=== PATIENT | male | born 1960 | race Caucasian/White ===

== ENCOUNTER 2020-06-12 11:26 | Emergency (ER) | payer OTHER ==
[2020-06-12 11:55] VITALS: BP 99/75; PULSE 91
[2020-06-12] MEDS ORDERED: Sodium Chloride 0.9% 1,000 ML IV STA (12:51)
--- NOTE | 2020-06-12 12:51 | EDM.PDOC ---
ED HPI GENERAL MEDICAL PROBLEM - General Chief Complaint: Respiratory Problem Stated Complaint: COVID +/FATIGUE AND SYNCOPE Time Seen by Provider: 06/12/20 11:40 Source of Information: Reports: Patient History Limitations: Reports: No Limitations - History of Present Illness INITIAL COMMENTS - FREE TEXT/NARRATIVE: Patient is a 60-year-old male presenting to the emergency department with complaints of dizziness, fatigue, and diarrhea with a known diagnosis of COVID- 19. He states his symptoms began on 04 June which is approximately 8 days ago. He was tested for Covid at that time and received his top positive results 2 days later. States he has a very mild cough but denies any chest pain or shortness of breath. This morning when he stood up he became quite dizzy. He did not however pass out. He describes a decreased appetite. Thinks he has been taking an adequate amount of fluid, however he does have a couple episodes of diarrhea each day. Denies any abdominal pain. He has had some intermittent fevers but states that they have been lower than 101. He has been fever free for a few days. Has a history of A. fib, however he has no longer on blood thinners. 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 Headache Pain Score (Numeric/FACES): 5 Generalized Pain Score (Numeric/FACES): 5 - Related Data Allergies Allergy/AdvReac Type Severity Reaction Status Date / Time No Known Allergies Allergy Verified 10/16/14 07:15 Home Meds: Home Meds Magnesium Chloride [Slow-Mag] 71.5 mg PO ASDIRECTED #30 tablet. 06/12/20 [Rx] dexAMETHasone [Dexamethasone] 6 mg PO BID #7 tab 06/12/20 [Rx] Past Medical History Cardiovascular History: Reports: Afib, High Cholesterol, Hypertension Gastrointestinal History: Reports: GERD Psychiatric History: Reports: Anxiety, Depression Social & Family History - Tobacco Use Tobacco Use Status *Q: Never Tobacco User - Caffeine Use Caffeine Use: Reports: Coffee, Soda - Recreational Drug Use Recreational Drug Use: No ED ROS GENERAL - Review of Systems Review Of Systems: See Below Constitutional: Reports: Fever, Weakness, Fatigue HEENT: Reports: No Symptoms Respiratory: Reports: Cough. Denies: Shortness of Breath, Pleuritic Chest Pain Cardiovascular: Reports: Lightheadedness. Denies: Chest Pain, Dyspnea on Exertion, Syncope Endocrine: Reports: No Symptoms GI/Abdominal: Reports: Diarrhea. Denies: Abdominal Pain, Nausea, Vomiting : Reports: No Symptoms Musculoskeletal: Reports: Other (Generalized body aches) Skin: Reports: No Symptoms Neurological: Reports: Dizziness. Denies: Confusion, Headache Psychiatric: Reports: No Symptoms Hematologic/Lymphatic: Reports: No Symptoms Immunologic: Reports: No Symptoms ED EXAM, GENERAL - Physical Exam Exam: See Below Exam Limited By: No Limitations General Appearance: Alert, WD/WN, No Apparent Distress Respiratory/Chest: No Respiratory Distress, Lungs Clear, Normal Breath Sounds, No Accessory Muscle Use, Chest Non-Tender Cardiovascular: Normal Peripheral Pulses, Regular Rate, Rhythm, No Edema, No Gallop, No JVD, No Murmur, No Rub GI/Abdominal: Normal Bowel Sounds, Soft, Non-Tender, No Organomegaly, No Distention, No Abnormal Bruit, No Mass Neurological: Alert, Oriented, CN II-XII Intact, Normal Cognition, Normal Gait, Normal Reflexes, No Motor/Sensory Deficits Psychiatric: Normal Affect, Normal Mood Skin Exam: Warm, Dry, Intact, Normal Color, No Rash #1 Interpretation EKG Date: 06/12/20 Time: 12:36 Rhythm: A-Fib Rate (Beats/Min): 80 [place]: LAD-Left [place] Deviation P-Wave: Absent QRS: Normal ST-T: Normal QT: Prolonged EKG Interpretation Comments: A. fib at rate of 65 to 100 bpm Early R wave transition consider right ventricular hypertrophy/septal hypertrophy T wave flattening V3, V6, 1, aVL, 2, 3, and aVF-consider hypokalemia occasional PACs QTC is markedly prolonged Left axis deviation EKG interpreted by Dr. Lucita MG. Course - Vital Signs Last Recorded V/S: Last Vital Signs Temp 98.2 F 06/12/20 11:52 Pulse 91 06/12/20 11:52 Resp 20 06/12/20 11:52 BP 99/75 06/12/20 11:52 Pulse Ox 93 L 06/12/20 11:52 Orthostatic Blood Pressure [ 90/66 Standing] Orthostatic Blood Pressure [ 99/74 Sitting] Orthostatic Blood Pressure [ 96/76 Supine] - Orders/Labs/Meds Orders: Active Orders 24 hr Category Date Time Status Chest 1V Frontal [CR] Stat Exams 06/12/20 11:49 Taken Labs: Laboratory Tests 06/12/20 06/12/20 06/12/20 Range/Units 12:11 12:11 12:11 WBC 5.62 (4.23-9.07) K/mm3 RBC 4.92 (4.63-6.08) M/mm3 Hgb 14.8 (13.7-17.5) gm/dl Hct 43.5 (40.1-51.0) % MCV 88.4 D (79.0-92.2) fl MCH 30.1 (25.7-32.2) pg MCHC 34.0 (32.2-35.5) g/dl RDW Std Deviation 43.0 (35.1-43.9) fL Plt Count 159 L D (163-337) K/mm3 MPV 9.8 (9.4-12.3) fl Neut % (Auto) 71.6 H (34.0-67.9) % Lymph % (Auto) 19.4 L (21.8-53.1) % [place] % (Auto) 8.2 (5.3-12.2) % Eos % (Auto) 0.2 L (0.8-7.0) Baso % (Auto) 0.2 (0.1-1.2) % Neut # (Auto) 4.03 (1.78-5.38) K/mm3 Lymph # (Auto) 1.09 L (1.32-3.57) K/mm3 [place] # (Auto) 0.46 (0.30-0.82) K/mm3 Eos # (Auto) 0.01 L (0.04-0.54) K/mm3 Baso # (Auto) 0.01 (0.01-0.08) K/mm3 D-Dimer, Quantitative (0.19-0.50) mg/L Sodium (136-145) mEq/L Potassium (3.5-5.1) mEq/L Chloride (98-107) mEq/L Carbon Dioxide (21-32) mEq/L Anion Gap (5-15) BUN (7-18) mg/dL Creatinine (0.7-1.3) mg/dL Est Cr Clr Drug Dosing mL/min Estimated GFR (MDRD) (>60) mL/min BUN/Creatinine Ratio (14-18) Glucose (80-115) mg/dL Calcium (8.5-10.1) mg/dL Magnesium (1.8-2.4) mg/dl Ferritin 1532 H (26-388) ng/ml Total Bilirubin (0.2-1.0) mg/dL AST (15-37) U/L ALT (16-63) U/L Alkaline Phosphatase (46-116) U/L Lactate Dehydrogenase 270 H (85-227) U/L Troponin I (0.00-0.056) ng/mL C-Reactive Protein (<1.0) mg/dL NT-Pro-B Natriuret Pep (0-125) pg/mL Total Protein (6.4-8.2) g/dl Albumin (3.4-5.0) g/dl Globulin gm/dL Albumin/Globulin Ratio (1-2) 06/12/20 06/12/20 06/12/20 Range/Units 12:11 12:11 12:11 WBC (4.23-9.07) K/mm3 RBC (4.63-6.08) M/mm3 Hgb (13.7-17.5) gm/dl Hct (40.1-51.0) % MCV (79.0-92.2) fl MCH (25.7-32.2) pg MCHC (32.2-35.5) g/dl RDW Std Deviation (35.1-43.9) fL Plt Count (163-337) K/mm3 MPV (9.4-12.3) fl Neut % (Auto) (34.0-67.9) % Lymph % (Auto) (21.8-53.1) % [place] % (Auto) (5.3-12.2) % Eos % (Auto) (0.8-7.0) Baso % (Auto) (0.1-1.2) % Neut # (Auto) (1.78-5.38) K/mm3 Lymph # (Auto) (1.32-3.57) K/mm3 [place] # (Auto) (0.30-0.82) K/mm3 Eos # (Auto) (0.04-0.54) K/mm3 Baso # (Auto) (0.01-0.08) K/mm3 D-Dimer, Quantitative 0.66 H (0.19-0.50) mg/L Sodium 136 (136-145) mEq/L Potassium 3.7 (3.5-5.1) mEq/L Chloride 100 (98-107) mEq/L Carbon Dioxide 23 (21-32) mEq/L Anion Gap 16.7 H (5-15) BUN 25 H (7-18) mg/dL Creatinine 1.2 (0.7-1.3) mg/dL Est Cr Clr Drug Dosing 74.21 mL/min Estimated GFR (MDRD) > 60 (>60) mL/min BUN/Creatinine Ratio 20.8 H (14-18) Glucose 135 H (80-115) mg/dL Calcium 8.9 (8.5-10.1) mg/dL Magnesium (1.8-2.4) mg/dl Ferritin (26-388) ng/ml Total Bilirubin 0.5 (0.2-1.0) mg/dL AST 38 H (15-37) U/L ALT 35 (16-63) U/L Alkaline Phosphatase 57 (46-116) U/L Lactate Dehydrogenase (85-227) U/L Troponin I < 0.017 (0.00-0.056) ng/mL C-Reactive Protein 7.8 H* (<1.0) mg/dL NT-Pro-B Natriuret Pep 92 (0-125) pg/mL Total Protein 7.1 (6.4-8.2) g/dl Albumin 3.2 L (3.4-5.0) g/dl Globulin 3.9 gm/dL Albumin/Globulin Ratio 0.8 L (1-2) 06/12/20 Range/Units 12:11 WBC (4.23-9.07) K/mm3 RBC (4.63-6.08) M/mm3 Hgb (13.7-17.5) gm/dl Hct (40.1-51.0) % MCV (79.0-92.2) fl MCH (25.7-32.2) pg MCHC (32.2-35.5) g/dl RDW Std Deviation (35.1-43.9) fL Plt Count (163-337) K/mm3 MPV (9.4-12.3) fl Neut % (Auto) (34.0-67.9) % Lymph % (Auto) (21.8-53.1) % [place] % (Auto) (5.3-12.2) % Eos % (Auto) (0.8-7.0) Baso % (Auto) (0.1-1.2) % Neut # (Auto) (1.78-5.38) K/mm3 Lymph # (Auto) (1.32-3.57) K/mm3 [place] # (Auto) (0.30-0.82) K/mm3 Eos # (Auto) (0.04-0.54) K/mm3 Baso # (Auto) (0.01-0.08) K/mm3 D-Dimer, Quantitative (0.19-0.50) mg/L Sodium (136-145) mEq/L Potassium (3.5-5.1) mEq/L Chloride (98-107) mEq/L Carbon Dioxide (21-32) mEq/L Anion Gap (5-15) BUN (7-18) mg/dL Creatinine (0.7-1.3) mg/dL Est Cr Clr Drug Dosing mL/min Estimated GFR (MDRD) (>60) mL/min BUN/Creatinine Ratio (14-18) Glucose (80-115) mg/dL Calcium (8.5-10.1) mg/dL Magnesium 1.5 L (1.8-2.4) mg/dl Ferritin (26-388) ng/ml Total Bilirubin (0.2-1.0) mg/dL AST (15-37) U/L ALT (16-63) U/L Alkaline Phosphatase (46-116) U/L Lactate Dehydrogenase (85-227) U/L Troponin I (0.00-0.056) ng/mL C-Reactive Protein (<1.0) mg/dL NT-Pro-B Natriuret Pep (0-125) pg/mL Total Protein (6.4-8.2) g/dl Albumin (3.4-5.0) g/dl Globulin gm/dL Albumin/Globulin Ratio (1-2) Meds: Medications Discontinued Medications Generic Name Dose Route Start Last Admin Trade Name Freq PRN Reason Stop Dose Admin Dexamethasone 6 mg 06/12/20 15:18 06/12/20 16:01 Dexamethasone PO 06/12/20 15:19 6 mg ONETIME ONE Administration Sodium Chloride 1,000 mls @ 999 mls/hr 06/12/20 12:51 06/12/20 13:40 Normal Saline IV 06/12/20 13:51 999 mls/hr NOW STA Administration - Re-Assessments/Exams Free Text/Narrative Re-Assessment/Exam: 06/12/20 15:17 Hematology was significant for platelets slightly low at 159, and a gap 16.7, BUN 25, magnesium 1.5, ferritin 1532, LDH 270, CRP 7.8. Troponin was negative. EKG showed fib with rate of 65-1 10, some T wave flattening and prolonged QT interval. There is no signs of acute ischemia. Chest x-ray showed probable bilateral airspace consolidation is consistent with pneumonia. If clinical concern remains, further evaluation with CT is recommended. Patient's oxygen saturation has maintained at 92 to 94% on room air throughout his stay in the ER. He was found to be mildly orthostatic, therefore he received a 1 L bolus of normal saline. We will start him on dexamethasone 6 mg twice daily for 4 days as well as Slow-Mag for treatment of hypomagnesium. Discussed with patient that I would recommend that he purchase a home pulse oximeter and monitor his oxygen saturations to watch for deterioration in his condition. If you should maintain oxygen saturation below 90%, he should return to the ER for reevaluation. He is in agreement with this plan. Discharge instructions as documented. Departure - Departure Time of Disposition: 15:22 Disposition: Home, Self-Care 01 Condition: Good Clinical Impression: Pneumonia due to COVID-19 virus - Discharge Information *PRESCRIPTION DRUG MONITORING PROGRAM REVIEWED*: No *COPY OF PRESCRIPTION DRUG MONITORING REPORT IN PATIENT MAIXM: No Prescriptions: dexAMETHasone [Dexamethasone] 6 mg PO BID #7 tab Magnesium Chloride [Slow-Mag] 71.5 mg PO ASDIRECTED #30 tablet. Instructions: COVID-19 Frequently Asked Questions, COVID-19 Referrals: Fidencio Arnold MD [Primary Care Provider] - Forms: ED Department Discharge Additional Instructions: You were seen in the emergency department today for dizziness, fatigue, and diarrhea with a known diagnosis of COVID-19. Your work-up included blood work, an EKG of your heart, and a chest x-ray. Results of your work-up were consistent with a diagnosis of COVID-19. You were mildly dehydrated and your magnesium was slightly low as well. Your chest x-ray showed a mild bilateral viral pneumonia. Your oxygen saturations in the emergency department were stable throughout your stay. While in the ER, you received a liter of IV fluids as well as your first dose of dexamethasone which is a steroid. A prescription for dexamethasone and a magnesium supplement has been sent to clinic pharmacy. Take these medications as prescribed. Ensure that you are taking an adequate amount of fluid. Liquid such as Gatorade and Powerade are best to maintain hydration as well as electrolyte status. It is also recommended that you purchase a home pulse oximeter to monitor your oxygen saturations at home. Check it a few times a day. If you find that you are maintaining an oxygen saturation below 90% or if you develop any other new or worsening symptoms of concern, you should return to the emergency department for reevaluation. Sepsis Event Note (ED) - Evaluation Sepsis Screening Result: No Definite Risk - Focused Exam Vital Signs: Vital Signs Temp Pulse Resp BP Pulse Ox 06/12/20 11:52 98.2 F 91 20 99/75 93 L - My Orders Last 24 Hours: My Active Orders 06/12/20 11:49 Chest 1V Frontal [CR] Stat - Assessment/Plan Last 24 Hours: My Active Orders 06/12/20 11:49 Chest 1V Frontal [CR] Stat
[2020-06-12] MEDS ORDERED: Dexamethasone 4 MG Tab PO ONE (15:18)
--- NOTE | 2020-06-13 16:29 | CR ---
PROCEDURE INFORMATION: Exam: XR Chest, 1 View Exam date and time: 06/12/2020 11:55 AM Age: 60 years old Clinical indication: Other: Fatigue; Additional info: Covid+ TECHNIQUE: Imaging protocol: XR of the chest Views: 1 view. COMPARISON: No relevant prior exams. FINDINGS: Lungs: Probable areas hazy consolidation in the right upper and lower lung. The left lung is clear. Pleural space: Unremarkable. No pleural effusion. No pneumothorax. Heart/Mediastinum: Unremarkable. No cardiomegaly. Bones/joints: Unremarkable. IMPRESSION: Probable bilateral airspace consolidation is consistent with pneumonia. If clinical concern remains, further evaluation with CT is recommended. Thank you for allowing us to participate in the care of your patient. Dictated and Authenticated by: Elbert Jha MD 06/12/2020 1:42 PM Central Time ([place] & [place]) [place]
== END 2020-06-12 16:03 | disposition home or self-care (01) ==
LOC: JD.ED 11:26
DX: U07.1 COVID-19 (principal); J12.89 Other viral pneumonia; I10 Essential (primary) hypertension; I48.91 Unspecified atrial fibrillation; Z79.82 Long term (current) use of aspirin
CPT/HCPCS: 36415; 71045; 80053; 82728; 83615; 83735; 83880; 84484; 85025; 85379; 86140; 93005; 99284; J7030; J8540

== ENCOUNTER 2025-06-12 08:26 | Inpatient (IN) | payer OTHER ==
[~2025-06-12 08:26] MED LIST: Sodium Chloride 0.9% 10 ML Syringe FLUSH PRN
[2025-06-12] MEDS ORDERED: Lidocaine 1% with EPINEPHrine 1:100,000 20 ML MDV ONE (08:35)
[2025-06-12] MEDS: Lactated Ringers 1,000 ML IV SCH ×2 (08:35→18:48)
[2025-06-12] MEDS ORDERED: Heparin Sodium 5,000 Units/ML Vial ONE (09:10)
[2025-06-12] MEDS ORDERED: Propofol 200 MG/20 ML SDV ONE (09:19)
[2025-06-12] MEDS ORDERED: Ondansetron 4 MG/2 ML SDV ONE (09:20)
[2025-06-12] MEDS ORDERED: fentaNYL 250 MCG/5 ML SDV ONE (09:20)
[2025-06-12] MEDS ORDERED: dexmedeTOMIDine HCl 200 MCG/2 ML SDV ONE (09:20)
[2025-06-12] MEDS ORDERED: Ketamine HCL/NACL, ISO-OSM 50 MG/5 ML Syringe ONE (09:20)
[2025-06-12] MEDS ORDERED: Dexamethasone 4 MG/ML 5 ML MDV ONE (09:21)
[2025-06-12] MEDS ORDERED: Phenylephrine 1% 10 MG/ML SDV ONE (09:21)
[2025-06-12] MEDS ORDERED: Lactated Ringers 1,000 ML IV ONE ×2 (11:15→14:15)
[2025-06-12] MEDS ORDERED: droPERidol 2.5 MG/ML SDV ONE (13:00)
[2025-06-12] MEDS ORDERED: Metoprolol Tartrate 5 MG/5 ML SDV ONE (13:00)
[2025-06-12] MEDS ORDERED: diphenhydrAMINE 50 MG/ML SDV IVPUSH PRN (14:24)
[2025-06-12] MEDS ORDERED: fentaNYL 100 MCG/2 ML SDV EPIDUR PRN (14:24)
[2025-06-12] MEDS ORDERED: ePHEDrine 50 MG/ML SDV IVPUSH PRN (14:24)
[2025-06-12] MEDS ORDERED: Ropivacaine 0.5% 5 MG/ML 30 ML SDV ONE (14:30)
[2025-06-12] MEDS ORDERED: Ondansetron 4 MG/2 ML SDV IV PRN (15:25)
[2025-06-12] MEDS: Lidocaine 1% with EPINEPHrine 1:100,000 20 ML MDV ONE (15:34)
[2025-06-12] MEDS ORDERED: fentaNYL 100 MCG/2 ML SDV IVPUSH PRN (15:38)
[2025-06-12] MEDS ORDERED: droPERidol 2.5 MG/ML SDV IV PRN (15:52)
[2025-06-12] MEDS: Ondansetron 4 MG/2 ML SDV IVPUSH PRN (16:02)
[2025-06-12] MEDS: Sodium Chloride 0.9% 10 ML Syringe FLUSH SCH (18:19)
[2025-06-12] MEDS: Bupivacaine/fentaNYL/NS 100 ML Bag EPIDUR PRN (19:00)
[2025-06-13 04:25] LABS: BASOPHILS ABSOLUTE AUTO 0.0 K/mm3 (0.0-0.2); BASOPHILS PERCENT AUTO 0.2 % (0.0-1.0); EOSINOPHILS ABSOLUTE AUTO 0.0 K/mm3 (0.0-0.4); EOSINOPHILS PERCENT AUTO 0.0 % (0.0-6.0); IMMATURE GRAN ABSOLUTE AUTO 0.07 K/mm3 (0.00-0.05); IMMATURE GRAN PERCENT AUTO 0.4 % (0.0-0.4); LYMPHOCYTES ABSOLUTE AUTO 1.8 K/mm3 (1.0-4.8); LYMPHOCYTES PERCENT AUTO 9.9 % (24.0-44.0); MEAN PLATELET VOLUME 9.0 fl (9.4-12.4); MONOCYTES ABSOLUTE AUTO 1.0 K/mm3 (0.0-0.8); MONOCYTES PERCENT AUTO 5.7 % (0.0-8.0); NEUTROPHILS ABSOLUTE AUTO 14.9 K/mm3 (1.8-7.7); NEUTROPHILS PERCENT AUTO 83.8 % (41.0-71.0); NRBC ABSOLUTE 0.00 (0.00-0.02); NRBC PERCENT 0.0 % (0.0-0.2); PLATELET COUNT,PLT 234 K/mm3 (150-400); RED BLOOD CELL COUNT 4.76 M/mm3 (4.52-5.90); WHITE BLOOD CELL COUNT,WBC 17.75 K/mm3 (3.9-11.3)
[2025-06-13 04:48] LABS: BLOOD UREA NITROGEN,BUN 16.0 mg/dL (7-18); CARBON DIOXIDE,CO2 28.0 mEq/L (21-32); CHLORIDE,CL 106.0 mEq/L (98-107); CREATININE 1.0 mg/dL (0.7-1.3); EST CRCL DRUG DOSING (CG) 83.34 mL/min; ESTIMATED GFR 82.0 mL/min (>60); GLUCOSE RANDOM 131.0 mg/dL (70-99); POTASSIUM,K 4.5 mEq/L (3.5-5.1); SODIUM,NA 143.0 mEq/L (136-145)
[2025-06-13] MEDS: Venlafaxine 75 MG Cap.ER PO SCH (08:27)
[2025-06-13] MEDS: Diltiazem 300 MG Cap.CD PO SCH (08:27)
[2025-06-13] MEDS: Heparin Sodium 5,000 Units/ML Vial SUBCUT SCH (08:28)
[2025-06-13] MEDS ORDERED: Non-Formulary Medication 1 Each (Omeprazole 20 MG Cap.Cr) PO SCH (09:00)
[2025-06-13] MEDS: Lactated Ringers 1,000 ML IV SCH (16:31)
[2025-06-14 04:50] LABS: MEAN PLATELET VOLUME 9.5 fl (9.4-12.4); NRBC ABSOLUTE 0.00 (0.00-0.02); NRBC PERCENT 0.0 % (0.0-0.2); PLATELET COUNT,PLT 179 K/mm3 (150-400); RED BLOOD CELL COUNT 4.35 M/mm3 (4.52-5.90); WHITE BLOOD CELL COUNT,WBC 15.73 K/mm3 (3.9-11.3)
[2025-06-14 05:28] LABS: BLOOD UREA NITROGEN,BUN 20.0 mg/dL (7-18); CARBON DIOXIDE,CO2 27.0 mEq/L (21-32); CHLORIDE,CL 105.0 mEq/L (98-107); CREATININE 0.8 mg/dL (0.7-1.3); EST CRCL DRUG DOSING (CG) 104.18 mL/min; ESTIMATED GFR 97.0 mL/min (>60); GLUCOSE RANDOM 117.0 mg/dL (70-99); SODIUM,NA 139.0 mEq/L (136-145)
[2025-06-14 05:37] LABS: POTASSIUM,K 4.7 mEq/L (3.5-5.1)
[2025-06-14] MEDS: Heparin Sodium 5,000 Units/ML Vial SUBCUT SCH (09:33)
[2025-06-15 04:28] LABS: MEAN PLATELET VOLUME 9.2 fl (9.4-12.4); NRBC ABSOLUTE 0.00 (0.00-0.02); NRBC PERCENT 0.0 % (0.0-0.2); PLATELET COUNT,PLT 190 K/mm3 (150-400); RED BLOOD CELL COUNT 4.41 M/mm3 (4.52-5.90); WHITE BLOOD CELL COUNT,WBC 13.57 K/mm3 (3.9-11.3)
[2025-06-15 04:47] LABS: BLOOD UREA NITROGEN,BUN 17.0 mg/dL (7-18); CARBON DIOXIDE,CO2 28.0 mEq/L (21-32); CHLORIDE,CL 104.0 mEq/L (98-107); CREATININE 0.6 mg/dL (0.7-1.3); EST CRCL DRUG DOSING (CG) 138.9 mL/min; ESTIMATED GFR 106.0 mL/min (>60); GLUCOSE RANDOM 109.0 mg/dL (70-99); POTASSIUM,K 4.0 mEq/L (3.5-5.1); SODIUM,NA 141.0 mEq/L (136-145)
[2025-06-16 08:20] VITALS: BP 144/90; PULSE 94
== END 2025-06-16 10:55 | disposition home or self-care (01) | DRG 354 ==
LOC: JD.SDS 08:26 → EDSTATUS 11:00 → JD.ICU 15:02 → JD.MS 06-15 06:13
PROVIDERS: ADMIT Surgery; ATTEND Family Medicine
PROC: 0KNK0ZZ Release Right Abdomen Muscle, Open Approach (ICD-10-PCS; principal; 2025-06-12 10:15)
PROC: 0WUF0JZ Supplement Abdominal Wall with Synthetic Substitute, Open Approach (ICD-10-PCS; principal; 2025-06-12 10:15)
PROC: 3E03329 Introduction of Other Anti-infective into Peripheral Vein, Percutaneous Approach (ICD-10-PCS; principal; 2025-06-12 10:15)
PROC: 0KNL0ZZ Release Left Abdomen Muscle, Open Approach (ICD-10-PCS; principal; 2025-06-12 10:15)
PROC: 3E033XZ Introduction of Vasopressor into Peripheral Vein, Percutaneous Approach (ICD-10-PCS; principal; 2025-06-12 10:15)
PROC: 3E0333Z Introduction of Anti-inflammatory into Peripheral Vein, Percutaneous Approach (ICD-10-PCS; principal; 2025-06-12 10:15)
DX: K43.9 Ventral hernia without obstruction or gangrene (principal); J98.11 Atelectasis; D72.829 Elevated white blood cell count, unspecified; I48.91 Unspecified atrial fibrillation; I11.0 Hypertensive heart disease with heart failure; I50.9 Heart failure, unspecified; E78.00 Pure hypercholesterolemia, unspecified; R09.02 Hypoxemia; K21.9 Gastro-esophageal reflux disease without esophagitis; F41.9 Anxiety disorder, unspecified; F32.A Depression, unspecified; Z79.01 Long term (current) use of anticoagulants; Z79.891 Long term (current) use of opiate analgesic; Z79.84 Long term (current) use of oral hypoglycemic drugs; Z79.899 Other long term (current) drug therapy
CPT/HCPCS: 00790; 36415; 80048; 82947; 85025; 85027; 93005; 94668; 94761; A9270-GY; C1781; J0690; J1100; J1171; J1644; J1790; J2004; J2371; J2405; J2704; J2795; J3010; J3490; J7120